=== PATIENT | female | born 1955 | race African-American/Black ===

== ENCOUNTER 2021-04-03 10:38 | Emergency (ER) | payer MEDICARE, OTHER ==
[2021-04-03 12:27] LABS: HEMOGLOBIN 12.8 gm/dl (12.3-15.3); RED BLOOD COUNT 4.51 M/UL (4.00-5.10); WHITE BLOOD COUNT 8.9 K/UL (4.5-11.0)
[2021-04-03 13:08] LABS: BUN/CREATININE RATIO 20 (0-10)
== END 2021-04-03 15:39 | disposition home or self-care (01) ==
LOC: ER1 10:38
PROVIDERS: Physician Assistant
DX: R07.89 Other chest pain (principal); I48.91 Unspecified atrial fibrillation; E78.5 Hyperlipidemia, unspecified; I12.9 Hypertensive chronic kidney disease with stage 1 through stage 4 chronic kidney disease, or unspecified chronic kidney disease; E11.22 Type 2 diabetes mellitus with diabetic chronic kidney disease; N18.9 Chronic kidney disease, unspecified; Z86.73 Personal history of transient ischemic attack (TIA), and cerebral infarction without residual deficits; Z79.82 Long term (current) use of aspirin
CPT/HCPCS: 71045; 80053; 82550; 82553; 83874; 84484; 85025; 93005; 99285

== ENCOUNTER → 2021-09-09 | Outpatient (CLI) | payer MEDICARE, OTHER | LOC: HEART 5 08:45 | DX: I48.91 Unspecified atrial fibrillation (principal); J98.4 Other disorders of lung; R06.02 Shortness of breath; I08.1 Rheumatic disorders of both mitral and tricuspid valves; Z95.0 Presence of cardiac pacemaker | CPT/HCPCS: 93306 ==

== ENCOUNTER → 2022-02-10 | Outpatient (CLI) | payer MEDICARE, OTHER | LOC: HEART 5 08:44 | DX: Z01.810 Encounter for preprocedural cardiovascular examination (principal); I25.10 Atherosclerotic heart disease of native coronary artery without angina pectoris | CPT/HCPCS: 78452; A9502; J2785 ==